=== PATIENT | male | born 1985 | race Hispanic/Latino ===

== ENCOUNTER 2016-07-04 14:01 | Emergency (ER) | payer OTHER ==
[~2016-07-04] VITALS: Ht 172.7 cm; Wt 83.9 kg
[~2016-07-04 14:01] MED LIST: ATIVAN0.5 MG PO; AUGMENTIN 875 M1 TAB PO; FIORICET 325 MG1 TAB PO; METHADONE H5 MG/5 ML PO
[2016-07-04 14:07] VITALS: BP 111/74
[2016-07-04] MEDS ORDERED: AUGMENTIN 875-1 EACH PO (15:30)
--- NOTE | 2016-07-04 15:30 | ED GENERAL ADULT ---
History of Present Illness General Chief Complaint: Animal/Insect Bite Stated Complaint: DOG BITE ON FACE Source: patient Exam Limitations: no limitations Vital Signs & Intake/Output Vital Signs & Intake/Output Vital Signs Date Time Temp Pulse Resp B/P Pulse O2 O2 Flow FiO2 Ox Delivery Rate 07/04 1407 98.1 70 20 111/74 96 Room Air Allergies Coded Allergies: poison kaley extract (RASH 08/07/15) Reconcile Medications Acetaminophen/Butalbital/Caf (Fioricet 325 MG-50 MG-40 MG) 1 TAB TAB 1-2 TAB PO Q4-6 PRN HEADACHE AMOXICILLIN/POTASSIUM CLAV (Augmentin 875-125 Tablet) 875 MG/125 MG TAB 1 TAB PO BID URI Amoxicillin/Potassium Clav (Augmentin 875-125 Tablet) 875 MG-125 MG TABLET 1 TAB PO BID DOG BITE Lorazepam (Ativan) 0.5 MG TAB 1 TAB PO Q8P PRN ANXIETY, RESTLESS LEGS METHADONE HCL (Methadone HCl) 5 MG/5 ML YELITZA 99 MG PO DAILY MENTAL HEALTH ( Reported) Triage Note: RECEIVED 30 YO MALE S/P DOG BITE ON FACE, UPPER AND LOWER LIP. DOG IS PATIENTS PET, UP TO DATE ON ALL SHOTS. Triage Nurses Notes Reviewed? yes Onset: Just prior to arrival Duration: minute(s): (30) Timing: remote history Injury Environment: home Severity: mild Severity Numbers: 4 No Modifying Factors: none HPI: Patient is a 30-year-old male up-to-date with tetanus presenting to the emergency department complaining of a dog bite to the face. It was his dog. Dog is up-to-date with immunizations. Bleeding controlled with pressure. Pain is mild to moderate. Stinging in nature. Pain does not radiate. Denies taking anything for pain prior to arrival. Denies any nausea vomiting fevers or chills chest pain or shortness of breath. Denies any other injuries. (DEBORA WATKINS) Past History Travel History Traveled to [place] past 21 day No Medical History Any Pertinent Medical History? see below for history Neurological: NONE EENT: NONE Cardiovascular: NONE Respiratory: NONE Gastrointestinal: NONE Hepatic: NONE Renal: NONE Musculoskeletal: NONE Psychiatric: depression, substance abuse Endocrine: NONE Blood Disorders: NONE Cancer(s): NONE Surgical History Surgical History: non-contributory Psychosocial History Who do you live with Mother What is your primary language Estonian Tobacco Use: Current Daily Use Daily Tobacco Use Amount/Type: => 5 Cigarettes daily Family History Hx Contributory? No (DEBORA WATKINS) Review of Systems Review of Systems Constitutional: Reports: no symptoms. Comments Review of systems: See HPI, All other systems negative. Constitutional, no chills fever or weight loss HEENT: No visual changes no sore throat no congestion Cardiovascular: No chest pain ,palpitation Skin, no jaundice no rashes Respiratory: No dyspnea cough sputum or hemoptysis GI: No nausea no vomiting Muscle skeletal: no back pain, no neck pain, Neurologic: No numbness no confusion Psych: No stress anxiety Immunology: No splenectomy or history of AIDS (DEBORA WATKINS) Physical Exam Physical Exam General Appearance: well developed/nourished, no apparent distress, alert, awake , comfortable Comments: Well-developed well-nourished person in no acute distress HEENT: Pupils equally round and reactive to light and accommodation. Nose is atraumatic. Pharynx normal. No swelling or edema. Neck: Normal inspection Cardiovascular: Regular rate and rhythms no murmurs rubs or gallops, normal JVP Respiratory: No respiratory distress. Extremity: No edema Neuro: Alert oriented x3, motor sensory normal, cranial nerves II through XII grossly intact. Skin: There is a 1 cm subcutaneous well approximating laceration on the left side of the lower lip, does not cross vermilion border. No discharge no bleeding. No surrounding erythema or edema. There is a second laceration that does extend through the vermilion border on the left upper lip. The superior aspect of the laceration is superficial, the part of the laceration that extends into the lip is subcutaneous, approximately half of a centimeter, no bleeding no tenderness no discharge no foreign body. Psych: Mood and affect is normal, memory and judgment is normal. Core Measures ACS in differential dx? No CVA/TIA Diagnosis: No Severe Sepsis Present: No Septic Shock Present: No (DEBORA WATKINS) Progress Differential Diagnoses I considered the following diagnoses in my evaluation of the patient: Laceration, abrasion, contusion, dog bite, need for prophylaxis against dog bite Plan of Care: Wound will be cleaned, irrigated, declined pain medication on arrival. Initial ED EKG: none (DEBORA WATKINS) Departure Departure Time of Disposition: 1528 Disposition: HOME OR SELF CARE Condition: Stable Clinical Impression Primary Impression: Dog bite Qualifiers: Encounter type: initial encounter Qualified Code: W54.0XXA - Bitten by dog, initial encounter Referrals: PATIENT HAS NO PRIMARY CARE DR (PCP/Family) Additional Instructions: Follow-up in 5-7 days for wound check. Return for worsening symptoms or concerns. Keep wound clean and dry. Take Augmentin as prescribed. Take over- the-counter Motrin and Tylenol as directed. Departure Forms: Customer Survey General Discharge Information Prescriptions: Current Visit Scripts Amoxicillin/Potassium Clav (Augmentin 875-125 Tablet) 1 TAB PO BID #20 TAB (DEBORA WATKINS) PA/MANAGER INTEGRATED Co-Sign Statement Statement: ED Attending supervision documentation- [] I saw and evaluated the patient. I have also reviewed all the pertinent lab results and diagnostic results. I agree with the findings and the plan of care as documented in the PA's/MANAGER INTEGRATED's documentation. [x] I have reviewed the ED Record and agree with the PA's/MANAGER INTEGRATED's documentation. [] Additions or exceptions (if any) to the PAs/MANAGER INTEGRATED's note and plan are summarized below: [] (ARLET BRO DO) Procedures Laceration/Wound Repair Laceration/Wound Repair: Wound Location: mouth Wound's Depth, Shape: linear, subcutaneous Wound Length (cm): 1.5 Wound Explored: clean, no foreign body removed, irrigated extensively Irrigated w/ Saline (ccs): 500 Betadine Prep? Yes Anesthesia: 1% lidocaine Volume Anesthetic (ccs): 2 Wound Debrided: minimal Wound Repaired With: sutures Suture Size/Type: 4:0, CHROMIC GUT Number of Sutures: 3 Tetanus Status: up to date Progress: Patient tolerated procedure well. (DEBORA WATKINS) Critical Care Note Critical Care Note Critical Care Time: non-applicable (DEBORA WATKINS)
== END 2016-07-04 15:58 ==
LOC: ERH 14:01
DX: S01.551A Open bite of lip, initial encounter (principal); W54.0XXA Bitten by dog, initial encounter

== ENCOUNTER 2016-09-07 12:23 | Emergency (ER) | payer OTHER ==
[~2016-09-07] VITALS: Ht 172.7 cm; Wt 83.9 kg
[~2016-09-07 12:23] MED LIST changes: +AUGMENTIN 875-1 EACH PO
--- NOTE | 2016-09-07 13:57 | ED ANIMAL BITE/WOUND CHECK ---
History of Present Illness General Chief Complaint: Animal/Insect Bite Stated Complaint: DOG BITE TO UPPER LIP Source: patient, old records Exam Limitations: no limitations Vital Signs & Intake/Output Vital Signs & Intake/Output Vital Signs Date Time Temp Pulse Resp B/P Pulse O2 O2 Flow FiO2 Ox Delivery Rate 09/07 1430 97.0 77 18 117/64 100 Room Air Room Air 09/07 1231 96.6 84 18 122/69 99 Room Air Allergies Coded Allergies: poison kaley extract (RASH 08/07/15) Reconcile Medications Amoxicillin/Potassium Clav (Augmentin 875-125 Tablet) 875 MG-125 MG TABLET 1 TAB PO BID PPX DOG BITE Triage Note: C/O LACERATION UNDER NOSE FROM HIS OWN DOG. PT HAS BEEN HERE BEFORE FOR STICHES FROM SAME DOG. UP TO DATE WITH BLESSING. Triage Nurses Notes Reviewed? yes Onset: Abrupt Duration: hour(s): (1), constant Timing: single episode today Injury Environment: home Is Injury an Animal Bite? Yes Animal Type: dog Context of Animal Attack: playing with animal Appearance of Animal: appeared well Animal Immunization Status: up to date Observation/Capture: animal known/obs x10 days Severity of Attack: bitten Severity: mild Severity Numbers: 3 No Modifying Factors: none Associated Symptoms: DENIES HPI: 30-year-old male presents emergency room for evaluation status post sustaining bite to his upper lip when he was playing with his dog. There was no other injury. The patient states that he has sustained similar injuries in the past requiring sutures. He is up-to-date on his tetanus, the dog is up-to-date on vaccinations. He now presents complaining mild aching nonradiating pain over his upper lip. There is no intraoral laceration no other injury (REBECA SANCHEZ) Past History Travel History Traveled to [place] past 21 day No Medical History Any Pertinent Medical History? see below for history Neurological: NONE EENT: NONE Cardiovascular: NONE Respiratory: NONE Gastrointestinal: NONE Hepatic: NONE Renal: NONE Musculoskeletal: NONE Psychiatric: depression, substance abuse Endocrine: NONE Blood Disorders: NONE Cancer(s): NONE Surgical History Surgical History: non-contributory Psychosocial History Who do you live with Mother What is your primary language Italian Tobacco Use: Current Daily Use Daily Tobacco Use Amount/Type: => 5 Cigarettes daily ETOH Use: denies use Illicit Drug Use: denies illicit drug use Family History Hx Contributory? No (REBECA SANCHEZ) Review of Systems Review of Systems Constitutional: Reports: see HPI. All Other Systems: Reviewed and Negative Comments Review of systems: See HPI, All other systems negative. Constitutional, no chills no fever, no malaise HEENT: No visual changes no sore throat no congestion Cardiovascular: No chest pain , no palpitation Skin, no rashes, no change in skin Respiratory: No dyspnea no cough GI: No nausea no vomiting, Muscle skeletal: No joint pain, no back pain, no neck pain, Neurologic:no headache Psych: No stress Heme/endocrine: No bruising no bleeding Immunology: No lymphadenopathy (REBECA SANCHEZ) Physical Exam Physical Exam General Appearance: well developed/nourished, no apparent distress, alert, awake , comfortable Comments: Well-developed well-nourished patient in no apparent distress. HEENT: Atraumatic, there are 2 superficial abrasions noted over the philtrum-no laceration there is no active bleeding, there is no intra-oral laceration no dental trauma, the rest of the face is atraumatic no swelling no ecchymosis extraocular motion intact Neck: Supple, FROM Back: FROM Cardiac: Regular rate and rhythm no murmur Respiratory: . No respiratory distress. Patient speaking in full complete sentences. Breath sounds clear to auscultation bilaterally Extremities: full range of motion Neuro: Alert and oriented x3 Skin: Warm & dry;No appreciable rash on exposed skin Psych: Mood affect normal, normal memory normal judgment. (REBECA SANCHEZ) Progress Differential Diagnosis: abscess, cellulitis, laceration abrasion avulsion Plan of Care: The wounds were thoroughly irrigated with normal saline peroxide and Betadine I discussed with the patient at least that there is nothing to suture, Dermabond was applied. Prescription for Augmentin was called into his pharmacy advised return anytime sooner with any concerns or signs of infection i had an extensive conversation regarding need for close follow up with their primary care physician this week as well as return precautions. I answered all of their questions, they feel comfortable with the plan and follow-up care. I discussed the medications that they will receive with the patient. I gave them signs and symptoms that could indicate an adverse reaction. I have advised them to limit their activities until they can see how they respond to the medication. (REBECA SANCHEZ) Departure Departure Time of Disposition: 1416 Disposition: HOME OR SELF CARE Condition: Stable Clinical Impression Primary Impression: Dog bite Referrals: PATIENT HAS NO PRIMARY CARE DR (PCP/Family) Additional Instructions: AUGMENTIN DISCUSSED FOR PROPHYLAXIS: RETURN WITH ANY CONCERNS OR SIGNS OF INFECTINO: REDNESS, WARMTH, SWELLING, DISCHARGE, FEVER OR CHILLS. THIS WAS SENT TO [facility] Departure Forms: Customer Survey General Discharge Information Prescriptions: Current Visit Scripts Amoxicillin/Potassium Clav (Augmentin 875-125 Tablet) 1 TAB PO BID #14 TAB (REBECA SANCHEZ) PA/MARKET MAKER Co-Sign Statement Statement: ED Attending supervision documentation- [] I saw and evaluated the patient. I have also reviewed all the pertinent lab results and diagnostic results. I agree with the findings and the plan of care as documented in the PA's/MARKET MAKER's documentation. [X] I have reviewed the ED Record and agree with the PA's/MARKET MAKER's documentation. [] Additions or exceptions (if any) to the PAs/MARKET MAKER's note and plan are summarized below: [] (ARLET BRO DO
[2016-09-07] MEDS ORDERED: AUGMENTIN 875-1 EACH PO (14:18)
[2016-09-07 14:30] VITALS: BP 117/64
== END 2016-09-07 14:30 ==
LOC: ERH 12:23
DX: S01.551A Open bite of lip, initial encounter (principal); W54.0XXA Bitten by dog, initial encounter; Y93.89 Activity, other specified; Y92.9 Unspecified place or not applicable